=== PATIENT | male | born 2000 | race Caucasian/White ===

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

== ENCOUNTER 2020-11-10 12:22 | Emergency (ER) | payer BC, OTHER ==
[2020-11-10 12:40] VITALS: BP 117/75; PULSE 113; TEMP 97.9; BMI 21.1
[2020-11-10] MEDS ORDERED: IBUPROFEN 600 MG TABLET (FP) PO ONE ×2 (13:02→13:05)
== END 2020-11-10 13:48 | disposition home or self-care (01) ==
LOC: JERFT 12:22
PROC: 2W39X1Z Immobilization of Left Upper Extremity using Splint (ICD-10-PCS; principal; 2020-11-10)
DX: S53.022 Posterior subluxation of left radial head (principal)
CPT/HCPCS: 73070-TC-LT-FY; 99283-25